=== PATIENT | female | born 1955 | race Caucasian/White ===

== ENCOUNTER 2019-05-22 06:04 | Day surgery (SDC) | payer BC ==
[2019-05-21 09:19] VITALS: BMI 27.2
[2019-05-22] MEDS ORDERED: BUPIVACAINE HCL/PF 0.5% (5MG/ML) 10 ML VIAL ONE (07:19)
[2019-05-22] MEDS ORDERED: LIDOCAINE HCL 1%, 10 MG/ML (20ML VIAL) ONE (07:19)
[2019-05-22] MEDS ORDERED: LIDOCAINE HCL 1%, 10 MG/ML (20ML VIAL) PNB ONE ×2 (07:51→07:52)
[2019-05-22] MEDS ORDERED: LIDOCAINE HCL/PF 2% SDV 5ML VIAL ONE (07:51)
[2019-05-22] MEDS ORDERED: MIDAZOLAM HCL 2 MG/2 ML SINGLE DOSE VIAL ONE ×3 (07:51)
[2019-05-22] MEDS ORDERED: PROPOFOL 20 ML ONE (07:51)
[2019-05-22] MEDS ORDERED: BUPIVACAINE HCL/PF (5 MG/ML) 30 ML VIAL IJ ONE (07:52)
[2019-05-22] MEDS ORDERED: BUPIVACAINE HCL/PF 0.25% (2.5MG/ML) 10 ML VIAL ONE (09:03)
[2019-05-22] MEDS ORDERED: BUPIVACAINE HCL/PF 0.25% (2.5MG/ML) 10 ML VIAL STI ONE (09:09)
[2019-05-22] MEDS ORDERED: ACETAMINOPHEN INJECTION 100 ML IVPB ONE (09:18)
[2019-05-22] MEDS ORDERED: PROMETHAZINE HCL 25 MG/1 ML VIAL IVPUSH PRN (09:19)
[2019-05-22] MEDS ORDERED: oxyCODONE HCL 5 MG TABLET PO PRN (09:19)
[2019-05-22] MEDS ORDERED: ONDANSETRON 4 MG/2 ML VIAL IVPUSH PRN (09:19)
[2019-05-22] MEDS ORDERED: ACETAMINOPHEN 1000 MG/100 ML VIAL (NON FORMULARY) IVPB ONE (09:21)
[2019-05-22 10:19] VITALS: PULSE 50; TEMP 97.4
[2019-05-22 11:58] VITALS: BP 106/70
--- NOTE | 2019-05-25 09:51 | OP ---
DATE OF OPERATION: 05/22/2019 ATTENDING SURGEON: Yan Louise DPM [employer]ER: Milagros Porras, [id number] PREPROCEDURE DIAGNOSIS: Left foot painful bunion. POSTPROCEDURE DIAGNOSIS: Left foot painful bunion. PROCEDURE: Left bunionectomy. DESCRIPTION OF PROCEDURE: The patient was brought into the operating room, placed on the operating table in a supine position. Upon achieving IV anesthesia, 10 mL of lidocaine plain was injected above the left first metatarsal in a Fernández block fashion along with an extra preoperative injection of 5 mL of 1:1 mixture of lidocaine plain 1% and Marcaine 0.5%. Incision was placed dorsally over the left 1st metatarsal extending from the neck of the 1st metatarsal, to the base of the 1st proximal phalanx. This incision was deepened via sharp dissection to the level of the capsule. Care was taken during incision to avoid damage to neurovascular or tendinous structures. The capsule was then incised in a linear fashion and the capsular structures were reflected. When the 1st metatarsal head was exposed, a lot of osteophytes were noted along with an arthritic deformity along with a medial prominence and a dorsal prominence were noted of the metatarsal head. The medial prominence and the dorsal prominence were resected using a sagittal saw. The wound was then flushed with copious amounts of normal saline, and the capsule was then closed with 3-0 Vicryl and subcutaneous closure was done in a running fashion with 4-0 Vicryl, and the skin was closed in horizontal mattress fashion with 4-0 nylon. A postoperative injection of 10 mL of Marcaine plain 0.5% was injected above the left 1st metatarsal, again in the Fernández block fashion. The foot was then dressed in Adaptic, gauze, Kerlix, and a Coban wrap. The patient tolerated the procedure and anesthesia well and was transferred from the OR to PACU with vital signs stable and neurovascular status intact to her left foot. YAN LOUISE DPM /[id number]
--- NOTE | 2019-05-25 17:12 | PATH ---
Surgical Pathology Report Patient Name: RAYA RUEDA [facility]. Rec. #: [id number] /Age/Gender: 1955 (Age: 64) / F Account: [id number] Location: [facility] SURGICAL Taken: 05/22/2019 Received: 05/22/2019 Reported: 05/25/2019 Physicians: Yan Louise DPM Specimen(s) Received BONE AND SOFT TISSUE, LEFT FOOT Clinical History Left hallux valgus Final Diagnosis BONE AND SOFT TISSUE, FOOT, LEFT, BUNIONECTOMY: BONE WITH DEGENERATIVE CHANGES AND DENSE FIBROCONNECTIVE TISSUE. Electronically Signed Lynne Zamudio M.D. Gross Description Received in formalin labeled "bone and soft tissue left foot," is a 4.0 x 3.0 x 0.3 cm aggregate of childress-yellow bone and soft tissue fragments. Parlor Maid sections are submitted in one cassette, following decalcification. /05/22/2019 saudi05/22/2019
== END 2019-05-22 11:58 | disposition home or self-care (01) ==
LOC: JASU-SURG 06:04
PROVIDERS: ATTEND Podiatrist Foot Surgery
PROC: 0QBR0ZZ Excision of Left Toe Phalanx, Open Approach (ICD-10-PCS; principal; 2019-05-22 07:30)
DX: M21.612 Bunion of left foot (principal); M20.12 Hallux valgus (acquired), left foot
CPT/HCPCS: 88304-TC; 88311-TC; 94760; J0131